=== PATIENT | female | born 1935 | race Caucasian/White ===

== ENCOUNTER 2023-09-25 16:55 | Emergency (ER) | payer OTHER, SELFPAY ==
[2023-09-25 16:58] VITALS: BP 156/69
[2023-09-25 18:30] VITALS: BP 145/67
[2023-09-25] MEDS: DUONEB 3 ML INH (18:39)
--- NOTE | 2023-09-25 18:44 | ED.GENMED ---
History of Present Illness
General
Chief Complaint: Breathing Problem
Source: patient and family (Daughter who is at bedside)
Exam Limitations: none
Time Seen by Provider: 09/25/23 17:50
Nursing documentation reviewed up to this point in time: agreed with
Travel History
Have you had any contact with someone who has COVID-19?: No
Do you have any symptoms of coronavirus? Fever > 100 degrees, chills, cough, shortness of breath, sore throat, loss of taste or smell, muscle aches, or headache?: Yes
Symptoms:: SOB. cough
History of Present Illness
History of Present Illness:
This is an 87-year-old woman who resides at home with her who complains of near 2-week history of cough, occasionally productive of white phlegm. She does note somewhat chronic intermittent cough with occasional bronchitis and remote
history of smoking in her 20s but no history of asthma nor COPD. Cough has worsened over the past week and after a telehealth visit with her PCP Z-Yoan was prescribed September 19 which she finished today.
Despite antibiotic cough has worsened along with some breathlessness. Dyspnea is much worse with lying down, cough is worse with lying down and over the past 2-3 nights she has awoken in the middle the night 'gasping for breath' She does note
mild dyspnea on exertion over the past week which is new as well.
No history of similar episodes in the past.
No close contacts with similar symptoms. No recent travel.
She denies leg pain or swelling.
Appetite has been fair, she denies nausea nor vomiting, no change in weight. She has not had a fever nor chills. No chest pain or palpitations.
No home COVID testing.
No recent change in medications.
She states a week and a half ago she had a routine checkup with Dr. Rucker, feeling well at that time.
She did use her 's albuterol inhaler today with questionable mild, temporary relief of cough.
Past History
Past History
ED Past Medical History: CAD, GERD, HTN, Hypercholesterolemia, CT and Other (Diverticulosis/diverticulitis)
ED Past Surgical History: Appendectomy, Cardiac (PTCA with stent 2005) and Orthopedic (Lumbar laminectomy January 2013, right shoulder arthroscopy)
Social History
Tobacco: Former smoker (Remote history of smoking in her 20s)
Alcohol: None
Drug: None
Personal:
Living: with family
Employment: Retired
Family History
Family History: Other (Noncontributory)
Phy Exam
Physical Exam
Physical Exam:
GENERAL: 87-year-old woman appears her stated age, awake and alert, pleasant. Mild resting tachypnea noted but able to speak in full sentences. Intermittent harsh nonproductive cough is noted. Daughter is accompanying.
EYE: anicteric
NECK: Supple, nontender, no meningismus, no significant adenopathy. No JVD.
ENT: posterior pharynx is without injection, mild clear to pearly postnasal drip is noted, oral mucosa is moist. TM clear b/l, nares have mildly boggy turbinates with scant clear rhinorrhea.
CARDIAC: Regular rate and rhythm. no murmur.
LUNGS: Harsh expiratory wheezing bilaterally, mild resting tachypnea.
ABDOMEN: Soft, nondistended, without focal tenderness, normoactive BS.
NEUROLOGICAL: Alert and oriented x3, no focal neuro deficits.
SKIN: Warm and dry, normal color, skin intact. No rash.
MUSCULOSKELETAL: No C/C/E. peripheral pulses are full and equal b/l. No palpable tenderness.
PSYCH: Normal and appropriate interaction.
Scores
Heart Failure Risk
Heart Failure Risk Score: Yes
History of Stroke or TIA: No
History of intubation for respiratory distress: No
Heart rate on ED arrival >/= 110: No
SaO2 <90% on arrival on room air: No
HR >/=110 during 3min walk test (or too ill to perform test): No
ECG has acute ischemic changes: No
Urea >/=12mmol/L (BUN 33.6mg/dL): No
Serum CO2>/=35mmol/L: No
Troponin I or T elevated to CT Level (0.4mg/dL): No
NT-proBNP >/=5,000ng/L (5,000pg/ml): No
HF Risk Score: 0
Admission Status: LOW RISK 2.8% Consider discharge to home with f/u visit to PCP/Pig Handler
Course
Orders/Labs/Results
Orders:
Orders
09/25/23 18:14
Ipratropium/Albuterol Sulfate [Duoneb] 3 ml INH R NOW ONE
09/25/23 18:15
Electrocardiogram (*1) Urgent
Reason for Study: Shortness of Breath
EKG- Treatment ONCE
09/25/23 18:16
CR Chest - 2 Views Urgent
Comment:
Reason For Exam: cough, SOB, PND
09/25/23 18:36
COVID-19 Antigen Urgent
Source: Nasal Swab
Complete Blood Count/With Diff Urgent
Comprehensive Metabolic Panel Urgent
Lactic Acid Urgent
NT-proBNP Urgent
Troponin I Urgent
09/25/23 20:35
3 Minute Walk Test [3 Minute Walk Test- Treatment] ONCE
Dexamethasone Sod Phosphate [Decadron] 10 mg IV NOW STA
Abnormal Lab Results
09/25/23
18:36
WBC 3.9 L 10^3/uL
(4.8-10.8)
RBC 3.46 L 10^6/uL
(4.20-5.40)
Hgb 10.2 L g/dL
(12.0-16.0)
Hct 29.8 L %
(37.0-47.0)
Absolute Lymphs (auto) 1.1 L 10^3/uL
(1.2-3.4)
Monocytes % 12.3 H %
(1.7-9.3)
Sodium 132 L mmol/L
(135-145)
BUN 33 H mg/dl
(7-17)
Creatinine 1.2 H mg/dL
(0.6-1.0)
Glucose 123 H mg/dl
(70-99)
09/25/23 18:36
09/25/23 18:36
Vital Signs
Initial and Last Documented VS:
Initial Vital Signs
Temp Pulse Resp BP Pulse Ox
98.5 F 85 18 156/69 96
09/25/23 16:58 09/25/23 16:58 09/25/23 16:58 09/25/23 16:58 09/25/23 16:58
Last Documented Vital Signs
Temp Pulse Resp BP Pulse Ox
98.5 F 67 20 128/80 96
09/25/23 16:58 09/25/23 20:45 09/25/23 21:28 09/25/23 20:06 09/25/23 21:28
MDM/Problems Addressed
Differential Diagnosis Includes:
Concern for acute asthmatic bronchitis, concern for CHF, pneumonia.
Will check labs including BNP, troponin. Will check COVID-19 antigen.
Will check chest x-ray.
Will give DuoNeb nebulizer.
Chronic conditions affecting care: HTN and CAD
*Radiology
Radiology exam reviewed: preliminary read by ED provider (Chest x-ray shows mild hyperinflation, no evidence of infiltrate. Overall similar to previous June 2022.)
*Pulse Oximetry
Patient hypoxic: no
*EKG
Interpreted by ED Provider?: Yes
Comparison EKG: no changes (Unchanged from previous September 2021 save her heart rate has increased from 60 to now 70)
Rate: normal
Rhythm: sinus
[place]: normal axis
Interval: normal interval
QRS Pattern: normal QRS
Ischemia: no ischemia
*Sales Planner Interpretation
Rate: normal
Interpretation: normal
Rhythm: sinus
*Critical Care Note
Total Time (30-74mins, 75-104mins- exclusive of procedures): Not Applicable
Update Note
Update Note:
09/25/2023 2142 PM
Patient feeling markedly improved after nebulizer treatment.
She continues with moderate expiratory wheezing but no further dyspnea and has ambulated through ED halls with steady unaided gait and without dyspnea nor hypoxia.
Labs show mild but stable anemia. Mild leukopenia, similar to previous.
Chemistries show minimally elevated creatinine of 1.2, similar sporadic elevations noted previously.
BNP is normal at 300, negative troponin. COVID testing is negative.
Chest x-ray shows mild hyperinflation but no evidence of infiltrate nor effusion.
History and exam most consistent with acute bronchitis. She does note that cough and shortness of breath are worse at nighttime. It is reassuring that BNP is normal and no evidence of CHF on chest x-ray.
She has been given an IV dose of Decadron and recommend a tapering course of prednisone for wheezing along with albuterol inhaler for as needed cough, wheezing.
No witnessed paroxysms of cough. Patient notes allergy to tetanus vaccine thus not up-to-date with pertussis vaccination. Could this be potential pertussis?. Less likely, no close contacts with similar symptoms and she just completed a course of
Zithromax today which should potentially cover pertussis. At this point I do not feel further antibiotics are required.
Recommend prompt follow-up with PCP for recheck.
Return precautions discussed.
ED Attending Note
-
Portions of this chart may have been created with voice recognition software.� Occasional wrong word or��sound alike� substitutions may have occurred due to the inherent limitations of voice recognition software.
Discharge Plan
Departure
Patient Disposition: Home (Routine Discharge)
Date of Disposition: 09/25/23
Time of Disposition: 21:39
Patient with high blood pressure during this ER visit?: No
Condition: Good
Discharge Problem:
Acute asthmatic bronchitis
Instructions: Acute Bronchitis, Adult (DC), How to Use a Metered Dose Inhaler ED
Prescriptions:
New
prednisone 10 mg Tablet
See Rx Instructions .ROUTE .COMPLEX Qty: 30 0RF
Rx Instructions:
Take By Mouth:
40 mg daily x3 days, 30 mg daily x3 days,
20 mg daily x3 days, 10 mg daily x3 days.
albuterol sulfate [ProAir HFA] 90 mcg/actuation Hfa Aerosol Inhaler
2 puff INHALATION Q4HPRN PRN (Reason: shortness of breath/cough) Qty: 90 0RF
Rx Instructions:
Dispense with spacer
No Action
aspirin 81 MG tablet,delayed release (DR/EC)
81 mg PO DAILY
cyanocobalamin (vitamin B-12) 1,000 MCG tablet
1,000 mcg PO DAILY
simvastatin 20 MG tablet
20 mg PO QPM
losartan-hydrochlorothiazide 1 EACH tablet
1 tab PO DAILY
coenzyme [id number] E 1 CAP capsule
1 cap PO DAILY
Nexium
22.3 mg PO DAILY
Referrals:
Abraham Brand MD [Family Provider] - Call in 1-3 days for appt
Interventions
Interventions:
*Risk Screen - Suicide Last Done: 09/25/23 16:58
*General Assessment Last Done: 09/25/23 16:58
*Neglect/Abuse Screening Last Done: 09/25/23 16:58
*ED COVID-19 Vaccine History Last Done: 09/25/23 17:35
ED- Cardiac Assessment Last Done: 09/25/23 18:37
ED- Pulmonary Assessment Last Done: 09/25/23 18:37
Discharge Date and Time
Print Language: MOHAWK
[2023-09-25 18:51] LABS: % Basophils 0.3 % (0-2); % Eosinophils 0.5 % (0-6); % Immature Granulocytes 0.3 % (0-0.5); % Lymphocytes 28.9 % (20.5-51.1); % Monocytes 12.3 % (1.7-9.3); % Neutrophils 57.7 % (42.2-75.2); Absolute Lymphocytes 1.1 10^3/uL (1.2-3.4); Absolute Monocytes 0.5 10^3/uL (0.1-0.6); Absolute Neutrophils 2.3 10^3/uL (1.4-6.5); Hematocrit 29.8 % (37.0-47.0); Hemoglobin 10.2 g/dL (12.0-16.0); Mean Corp Hgb Conc. 34.2 g/dL (33.0-37.0); Mean Corpuscular Hgb 29.5 pg (27.0-31.0); Mean Corpuscular Volume 86.1 fL (81.0-99.0); Mean Platelet Volume 9.4 fL (7.4-10.4); Nucleated Red Blood Cells % 0 %; Platelet Count 152 10^3/uL (130-400); Red Blood Cell Count 3.46 10^6/uL (4.20-5.40); Red Cell Dist. Width 12.8 % (11.5-14.5); White Blood Cell Count 3.9 10^3/uL (4.8-10.8)
[2023-09-25 19:00] VITALS: BP 134/72
[2023-09-25 19:03] VITALS: BP 135/62
[2023-09-25 19:05] LABS: Lactic Acid 1.5 mmol/L (0.7-2.0)
[2023-09-25 19:07] LABS: ALT (SGPT) 17 U/L (0-35); AST (SGOT) 28 U/L (14-36); Albumin 3.8 g/dl (3.5-5.0); Alkaline Phosphatase 65 U/L (38-126); Blood Urea Nitrogen 33 mg/dl (7-17); Calcium 9.5 mg/dl (8.4-10.2); Carbon Dioxide 24 mmol/L (22-30); Chloride 100 mmol/L (98-107); Glucose 123 mg/dl (70-99); Sodium 132 mmol/L (135-145); Total Bilirubin 0.2 mg/dl (0.2-1.3); Total Protein 6.3 g/dl (6.3-8.2); eGFR 43.54
[2023-09-25 19:11] LABS: COVID-19 Antigen Negative (Negative)
[2023-09-25 19:18] LABS: NT-proBNP 323 pg/ml; Troponin I < 0.012 ng/ml
[2023-09-25 20:06] VITALS: BP 128/80
[2023-09-25] MEDS: DECADRON 10 MG IV (20:53)
[2023-09-25 21:40] VITALS: BP 144/71
== END 2023-09-25 21:50 | disposition home or self-care (01) ==
LOC: EMR 16:55
PROVIDERS: EMERGENCY PHYSICIAN Emergency Medicine; FAMILY PHYSICIAN Family Medicine
DX: J20.9 Acute bronchitis, unspecified (principal); J45.901 Unspecified asthma with (acute) exacerbation; D64.9 Anemia, unspecified; I25.10 Atherosclerotic heart disease of native coronary artery without angina pectoris; I10 Essential (primary) hypertension; Z87.891 Personal history of nicotine dependence; Z11.52 Encounter for screening for COVID-19
CPT/HCPCS: 99285; 96374; 94640; 71046; 80053; 83605; 83880; 84484; 85025; 87811; 93005

== ENCOUNTER 2023-11-10 11:17 | Outpatient (RCR) | payer OTHER, SELFPAY | END 2023-11-19 23:59 | disposition home or self-care (01) | LOC: RPT 11:17 | PROVIDERS: ATTENDING PHYSICIAN Internal Medicine Gastroenterology; FAMILY PHYSICIAN Family Medicine | DX: R15.0 Incomplete defecation (principal); Z73.6 Limitation of activities due to disability | CPT/HCPCS: 97161; 97530 ==

== ENCOUNTER 2023-12-24 10:19 | Outpatient (RCR) | payer OTHER, SELFPAY | END 2023-12-24 23:59 | disposition home or self-care (01) | LOC: RPT 10:19 | PROVIDERS: ATTENDING PHYSICIAN Internal Medicine Gastroenterology; FAMILY PHYSICIAN Family Medicine | DX: R15.0 Incomplete defecation (principal); Z73.6 Limitation of activities due to disability | CPT/HCPCS: 97110; 97530 ==

== ENCOUNTER 2024-03-08 12:40 | Emergency (ER) | payer OTHER, SELFPAY ==
--- NOTE | 2024-03-08 13:03 | ED.GENMED ---
History of Present Illness
General
Chief Complaint: Change in Mental Status
Source: patient and family (daughter at bedside)
Exam Limitations: none
Time Seen by Provider: 03/08/24 12:47
Nursing documentation reviewed up to this point in time: agreed with
History of Present Illness
History of Present Illness:
88 yo female w h/o migraines w aura, chronic back pain, HTN, HLD, GERD, [place], cardiac stents presents stating she's been having her typical aura of visual disturbance starting in left eye then migrates over to the right eye lasting 30-40 minutes, then
a dull headache for less than an hour, then 'leaves me a bit tired' and 'I can't think clearly for a while.' Occurs sometimes 3 x a week, sometimes once a month.
Denies headaches (just gets the aura). Denies CP, SOB, abdominal pain, denies n/v/d/c. Denies UTI symptoms.
Daughter at bedside states yesterday pt was having trouble getting her words out, 'she knew what she wanted to say but she just couldn't say it.' States pt couldn't put sentences together. States symptoms are much improved today but pt states she
still feels 'a little confused.'
Pt has been under a lot of stress. 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 She feels fatigued and exhausted. She has been told by her PCP to take Lorazepam prn but up to now she didn't want to for fear of
addiction. She now states she would take it.
Past History
Past History
ED Past Medical History: CAD, GERD, HTN, Hypercholesterolemia, [place] and Other (Diverticulosis/diverticulitis)
ED Past Surgical History: Appendectomy, Cardiac (PTCA with stent 2005) and Orthopedic (Lumbar laminectomy January 2013, right shoulder arthroscopy)
Social History
Tobacco: Former smoker (Remote history of smoking in her 20s)
Alcohol: None
Drug: None
Personal:
Living: with family
Employment: Retired
Family History
Family History: Other (Noncontributory)
Review of Systems
Review of Systems
Allergies reviewed?: Yes
All Other Systems: ROS reviewed and negative except as documented in HPI and ROS
Constitutional: Reports fatigue; Denies fever
Respiratory: Denies trouble breathing
Cardiac: Denies chest pain
ABD/GI: Denies abdominal pain, nausea, vomiting, diarrhea or constipated
: Denies dysuria, frequency or difficulty voiding
Musculoskeletal: Reports no symptoms
Skin: Reports no symptoms
Neurological: Reports other ('aura' no headache typical of her migraines. Expressive aphasia, improving)
Psychiatric: Reports depression (due to 's and burial yesterday) and anxiety
Phy Exam
Physical Exam
Physical Exam:
GENERAL: No acute distress. A&Ox3.
CONSTITUTIONAL: Afebrile.
EYES: PERRL, conjunctivae red rimmed, has been crying
ENMT: moist mucus membranes, Pharynx nl
RESPIRATORY: Regular respirations, nonlabored, lungs clear.
CARDIOVASCULAR: Regular rate and rhythm, no murmurs, no rubs.
GI: Soft, nontender, normal BS
MUSCULOSKELETAL: Moves with ease. Well perfused. No edema
SKIN: Warm, dry, pink
PSYCH: Normal mood and affect. Well kept, interactive and appropriate
NEUROLOGIC: Awake, alert and oriented. Speech clear, moving all extremities well, strength equal throughout. CN 2-12 intact, no focal neurological deficits. Ambulates well with steady gait.
Course
Orders/Labs/Results
Orders:
Orders
03/08/24 13:06
Complete Blood Count/With Diff Urgent
Comprehensive Metabolic Panel Urgent
Urinalysis Reflex To Culture Urgent
Date Specimen was Collected: 03/08/24
Time Specimen was Collected: 13:00
Urine Microscopic Reflex Cult Urgent
Urine Culture Urgent
MARCUS Source: U
Specimen Description:
Date Specimen was Collected: 03/08/24
Time Specimen was Collected: 13:00
03/08/24 13:17
CT Head W/o Iv Contrast Urgent
Comment:
Reason For Exam: expressive aphasia yesterday (improving)
Abnormal Lab Results
03/08/24
13:06
RBC 3.93 L 10^6/uL
(4.20-5.40)
Hgb 11.3 L g/dL
(12.0-16.0)
Hct 33.5 L %
(37.0-47.0)
Lymphocytes % 19.1 L %
(20.5-51.1)
BUN 26 H mg/dl
(7-17)
Leukocyte Esterase Rfl 1+ A
(Negative)
03/08/24 13:06
03/08/24 13:06
MDM/Problems Addressed
Differential Diagnosis Includes:
grief, situational anxiety, depression
dehydration
TIA
MDM/Problems Addressed:
88 yo female w h/o migraines w aura, chronic back pain, HTN, HLD, GERD, [place], cardiac stents presents stating she's been having her typical aura of visual disturbance starting in left eye then migrates over to the right eye lasting 30-40 minutes, then
a dull headache for less than an hour, then 'leaves me a bit tired' and 'I can't think clearly for a while.' Occurs sometimes 3 x a week, sometimes once a month.
Denies headaches (just gets the aura). Denies CP, SOB, abdominal pain, denies n/v/d/c. Denies UTI symptoms.
Daughter at bedside states yesterday pt was having trouble getting her words out, 'she knew what she wanted to say but she just couldn't say it.' States pt couldn't put sentences together. States symptoms are much improved today but pt states she
still feels 'a little confused.'
Pt has been under a lot of stress. 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 She feels fatigued and exhausted.
She has been prescribed Lorazepam in the past but not since 12/17/22
CBC with no clinically significant abnormality
CMP with no clinically significant abnormality. BUN 26, encouraged her to drink fluids for mild dehydration
2:15 PM:
Elderly female with episodic aphasia beginning after burying her yesterday, daughter at bedside states it is much improved today. Had aura of her typical migraine that has subsided.
Pt neuro exam is normal, in NAD, hx and exam consistent with grieving, situational depression. Other than mild dehydration, w/u here is unremarkable.
Pt stable for discharge
Rx for Lorazepam 0.5 mg #14 tabs sent to her pharmacy.
*Critical Care Note
Total Time (30-74mins, 75-104mins- exclusive of procedures): Not Applicable
ED Attending Note
-
Portions of this chart may have been created with voice recognition software.� Occasional wrong word or��sound alike� substitutions may have occurred due to the inherent limitations of voice recognition software.
Discharge Plan
Departure
Patient Disposition: Home (Routine Discharge)
Date of Disposition: 03/08/24
Time of Disposition: 14:10
Patient with high blood pressure during this ER visit?: No
Condition: Good
Discharge Problem:
Situational depression, Grief
Instructions: Dealing With , Adult
Prescriptions:
New
lorazepam 0.5 mg tablet
0.5 mg PO BID PRN (Reason: anxiety) Qty: 14 0RF
No Action
aspirin 81 MG tablet,delayed release (DR/EC)
81 mg PO DAILY
cyanocobalamin (vitamin B-12) 1,000 MCG tablet
1,000 mcg PO DAILY
simvastatin 20 MG tablet
20 mg PO QPM
losartan-hydrochlorothiazide 1 EACH tablet
1 tab PO DAILY
coenzyme [id number] E 1 CAP capsule
1 cap PO DAILY
Nexium
22.3 mg PO DAILY
prednisone 10 mg Tablet
See Rx Instructions .ROUTE .COMPLEX Qty: 30 0RF
Rx Instructions:
Take By Mouth:
40 mg daily x3 days, 30 mg daily x3 days,
20 mg daily x3 days, 10 mg daily x3 days.
albuterol sulfate [ProAir HFA] 90 mcg/actuation Hfa Aerosol Inhaler
2 puff INHALATION Q4HPRN PRN (Reason: shortness of breath/cough) Qty: 90 0RF
Rx Instructions:
Dispense with spacer
Referrals:
Abraham Brand MD [Active] - As needed
Activity Restrictions/Additional Instructions:
As we discussed, nothing worrisome in your workup here today.
You are rightfully grieving and feel depressed.
I sent a prescription to your pharmacy for Lorazepam 0.5 mg tablets. You may break them in half and take 0.25 mg twice a day if you don't want to take the 0.5 mg tablet.
See your doctor in 7-10 days if you are not feeling any better.
Interventions
Interventions:
*Risk Screen - Suicide Last Done: 03/08/24 12:45
*General Assessment Last Done: 03/08/24 12:45
*Neglect/Abuse Screening Last Done: 03/08/24 12:45
ED- Fall Risk Assessment Last Done: 03/08/24 13:24
*Nursing Disposition Last Done: 03/08/24 14:33
ED- Pulmonary Assessment Last Done: 03/08/24 13:24
ED- Neurological Assessment Last Done: 03/08/24 13:24
ED Swallowing Screen Last Done: 03/08/24 13:24
Discharge Date and Time
Discharge Date/Time: 03/08/24 14:33
Print Language: [place]
[2024-03-08 13:12] VITALS: BMI 24.8
[2024-03-08 13:35] LABS: % Basophils 0.3 % (0-2); % Immature Granulocytes 0.2 % (0-0.5); % Lymphocytes 19.1 % (20.5-51.1); % Monocytes 8.4 % (1.7-9.3); ALT (SGPT) 17 U/L (0-35); AST (SGOT) 28 U/L (14-36); Absolute Eosinophils 0.1 10^3/uL (0-0.7); Absolute Lymphocytes 1.2 10^3/uL (1.2-3.4); Absolute Monocytes 0.5 10^3/uL (0.1-0.6); Absolute Neutrophils 4.4 10^3/uL (1.4-6.5); Albumin 4.1 g/dl (3.5-5.0); Alkaline Phosphatase 66 U/L (38-126); Blood Urea Nitrogen 26 mg/dl (7-17); Calcium 10.2 mg/dl (8.4-10.2); Carbon Dioxide 27 mmol/L (22-30); Chloride 102 mmol/L (98-107); Estimated Creatinine Clearance 27 ml/min; Glucose 94 mg/dl (70-99); Hematocrit 33.5 % (37.0-47.0); Hemoglobin 11.3 g/dL (12.0-16.0); Mean Corp Hgb Conc. 33.7 g/dL (33.0-37.0); Mean Corpuscular Hgb 28.8 pg (27.0-31.0); Mean Corpuscular Volume 85.2 fL (81.0-99.0); Mean Platelet Volume 9.8 fL (7.4-10.4); Nucleated Red Blood Cells % 0 %; Platelet Count 207 10^3/uL (130-400); Potassium 4.2 mmol/L (3.5-5.1); Red Blood Cell Count 3.93 10^6/uL (4.20-5.40); Red Cell Dist. Width 13.5 % (11.5-14.5); Sodium 139 mmol/L (135-145); Total Bilirubin 0.5 mg/dl (0.2-1.3); Total Protein 6.3 g/dl (6.3-8.2); White Blood Cell Count 6.2 10^3/uL (4.8-10.8); eGFR 53.85
[2024-03-08 13:38] LABS: Urine Albumin Negative (Neg - Trace); Urine Bilirubin Negative (Negative); Urine Character Clear (Clear); Urine Color Yellow; Urine Glucose Negative (Negative); Urine Ketone Negative (Negative); Urine Leukocyte 1+ (Negative); Urine Nitrite Negative (Negative); Urine Occult Blood Negative (Negative); Urine Specific Gravity 1.005 (<1.030); Urine Urobilinogen Negative (Neg - 1+)
[2024-03-08 14:04] LABS: Urine Red Blood Cell 0-2 /HPF (0-2); Urine Squamous Cell 0-2 /LPF (Few)
== END 2024-03-08 14:33 | disposition home or self-care (01) ==
LOC: EMR 12:40
PROVIDERS: Registered Nurse; EMERGENCY PHYSICIAN Emergency Medicine; FAMILY PHYSICIAN Family Medicine
DX: F43.21 Adjustment disorder with depressed mood (principal); I10 Essential (primary) hypertension; E78.00 Pure hypercholesterolemia, unspecified; K21.9 Gastro-esophageal reflux disease without esophagitis; I25.2 Old myocardial infarction; I25.10 Atherosclerotic heart disease of native coronary artery without angina pectoris; E86.0 Dehydration; F03.90 Unspecified dementia, unspecified severity, without behavioral disturbance, psychotic disturbance, mood disturbance, and anxiety; Z87.891 Personal history of nicotine dependence; Z90.49 Acquired absence of other specified parts of digestive tract; Z95.5 Presence of coronary angioplasty implant and graft
CPT/HCPCS: 99284; 70450; 80053; 81003; 81015; 85025; 87086